=== PATIENT | female | born 1995 | race African-American/Black ===

== ENCOUNTER 2023-09-29 09:50 | Emergency (ER) | payer SELFPAY | END 2023-09-29 12:35 | disposition home or self-care (01) | LOC: MW.ED 09:50 | DX: M79.602 Pain in left arm (principal); Z75.8 Other problems related to medical facilities and other health care; Z88.0 Allergy status to penicillin | CPT/HCPCS: 99283 ==

== ENCOUNTER 2023-11-24 11:12 | Emergency (ER) | payer SELFPAY ==
[2023-11-24] MEDS: Diphtheria,Pertussis(Acell),Tetanus Vaccine 0.5 ML Syringe IM ONE (11:37)
== END 2023-11-24 12:10 | disposition home or self-care (01) ==
LOC: MW.ED 11:12
DX: S61.432A Puncture wound without foreign body of left hand, initial encounter (principal); Z23 Encounter for immunization; W26.8XXA Contact with other sharp object(s), not elsewhere classified, initial encounter
CPT/HCPCS: 73130-26-LT; 73130-LT; 90471; 90715; 99283; 99283-25

== ENCOUNTER 2024-05-21 16:09 | Emergency (ER) | payer MEDICAID ==
[2024-05-21 17:53] LABS: BASOPHILS ABSOLUTE AUTO 0.03 K/uL (0.00-0.20); BASOPHILS PERCENT AUTO 0.4 % (0.0-1.0); EOSINOPHILS ABSOLUTE AUTO 0.13 K/uL (0.00-0.45); EOSINOPHILS PERCENT AUTO 1.9 % (0.0-6.0); HEMATOCRIT 31.5 % (37.0-47.0); HEMOGLOBIN 10.3 g/dL (12.0-16.0); IMMATURE GRAN ABSOLUTE AUTO 0.01 K/uL (0.00-0.05); IMMATURE GRAN PERCENT AUTO 0.1 % (0.0-0.4); LYMPHOCYTES ABSOLUTE AUTO 3.25 K/uL (1.00-4.80); LYMPHOCYTES PERCENT AUTO 47.2 % (24.0-44.0); MEAN CORPUSCULAR HEMOGLOBIN 27.2 pg (28.0-32.0); MEAN CORPUSCULAR HGB CONC 32.7 g/dL (32.0-36.0); MEAN CORPUSCULAR VOLUME 83.1 fL (83.0-99.0); MEAN PLATELET VOLUME 10.6 fL (9.4-12.3); MONOCYTES ABSOLUTE AUTO 0.31 K/uL (0.00-0.80); MONOCYTES PERCENT AUTO 4.5 % (0.0-8.0); NEUTROPHILS ABSOLUTE AUTO 3.16 K/uL (1.80-7.70); NEUTROPHILS PERCENT AUTO 45.9 % (41.0-71.0); PLATELET COUNT,PLT 238 K/uL (150-400); RED BLOOD CELL COUNT 3.79 M/uL (4.10-5.30); WHITE BLOOD CELL COUNT,WBC 6.89 K/uL (3.9-11.3)
[2024-05-21 18:29] LABS: ALBUMIN 3.4 g/dL (3.4-5.0); BILIRUBIN TOTAL 0.9 mg/dL (0.2-1.0); CALCIUM 8.5 mg/dL (8.5-10.1); CARBON DIOXIDE,CO2 23.2 mmol/L (21.0-32.0); CREATININE 0.9 mg/dL (0.6-1.0); EST CRCL DRUG DOSING (CG) 80.36 mL/min; POTASSIUM,K 3.8 mmol/L (3.5-5.1); PROTEIN TOTAL,TP 6.8 g/dL (6.4-8.2)
[2024-05-21] MEDS: Sodium Chloride 0.9% 1,000 ML IV ONE (19:24)
== END 2024-05-21 21:17 | disposition left against medical advice (07) ==
LOC: MW.ED 16:09
DX: R55 Syncope and collapse (principal); R51.9 Headache, unspecified; Z88.1 Allergy status to other antibiotic agents; Z75.3 Unavailability and inaccessibility of health-care facilities
CPT/HCPCS: 36415; 80053; 84484; 84703; 85025; 93005; 96360; 99285; J7030; 93010; 99284

== ENCOUNTER 2024-09-01 10:52 | Emergency (ER) | payer MEDICAID | END 2024-09-01 13:02 | disposition home or self-care (01) | LOC: MW.ED 10:52 | DX: J02.0 Streptococcal pharyngitis (principal); Z88.0 Allergy status to penicillin; Z75.3 Unavailability and inaccessibility of health-care facilities | CPT/HCPCS: 87651; 99283; A9270; 99282 ==

== ENCOUNTER 2024-11-03 08:59 | Emergency (ER) | payer MEDICAID | END 2024-11-03 12:31 | disposition home or self-care (01) | LOC: MW.ED 08:59 | DX: B34.9 Viral infection, unspecified (principal) | CPT/HCPCS: 71045; 87428; 87651; 99284; A9270; 99283 ==